=== PATIENT | male | born 1945 | race Caucasian/White ===

== ENCOUNTER → 2018-04-15 | Outpatient (CLI) | payer MEDICARE, BC ==
[~2018-04-15] MED LIST: LEVO75TA5 PO; LISI1TAB5 PO; MULT1TAB60 PO; PANT40TA5 PO
[2018-04-15 15:25] LABS: CHLORIDE 107 mmol/L (98-107)
[2018-04-15 15:30] LABS: ALKALINE PHOSPHATASE 54 U/L (45-117); BILIRUBIN,TOTAL 0.7 mg/dL (0.2-1.0)
[2018-04-15 15:42] LABS: ALANINE AMINOTRANSFERASE 34 U/L (12-78); ALBUMIN 3.9 g/dL (3.4-5.0); ANION GAP 9 mmol/L (5-15); CREATININE 1.19 mg/dL (0.7-1.3)
[2018-04-15 15:44] LABS: TOTAL PROTEIN 7.9 g/dL (6.4-8.2)
[2018-04-15 16:20] LABS: CALCIUM 9.5 mg/dL (8.5-10.1)
== END | disposition home or self-care (01) ==
LOC: STAR 14:15
PROVIDERS: ATTEND Internal Medicine Gastroenterology
DX: Z01.818 Encounter for other preprocedural examination (principal); Z12.11 Encounter for screening for malignant neoplasm of colon; R13.10 Dysphagia, unspecified; K22.9 Disease of esophagus, unspecified
CPT/HCPCS: 36415; 80053; 93005

== ENCOUNTER 2018-04-21 05:41 | Day surgery (SDC) | payer MEDICARE, BC ==
[~2018-04-21] VITALS: Ht 172.7 cm; Wt 72.7 kg
[2018-04-21] MEDS ORDERED: ONABOTULINUMTOXINA 100 UNITS IM ONE (05:42)
[2018-04-21 06:12] VITALS: BP 163/93
[2018-04-21] MEDS ORDERED: LACTATED RINGERS 1,000 ML IV SCH (06:12)
[2018-04-21] MEDS ORDERED: LIDOCAINE-MPF 1%, 2ML INFIL ONE (06:30)
[2018-04-21] MEDS ORDERED: PROPOFOL 10 MG/ML, 20ML ONE (07:24)
[2018-04-21] MEDS ORDERED: SUCCINYLCHOLINE 20 MG/ML, 10ML ONE (07:24)
[2018-04-21] MEDS ORDERED: DEXAMETHASONE 4 MG/ML, 1ML ONE (07:24)
[2018-04-21] MEDS ORDERED: ONDANSETRON 2MG/ML, 2ML ONE (07:24)
== END 2018-04-21 09:45 | disposition home or self-care (01) ==
LOC: OUT 05:41
PROVIDERS: ATTEND Internal Medicine Gastroenterology
DX: Z12.11 Encounter for screening for malignant neoplasm of colon (principal); K22.2 Esophageal obstruction; K64.8 Other hemorrhoids; K22.0 Achalasia of cardia; Z88.8 Allergy status to other drugs, medicaments and biological substances
CPT/HCPCS: 43236; G0121; J0330; J0585; J1100; J2405; J2704; J7120